=== PATIENT | male | born 1935 | race Caucasian/White ===

== ENCOUNTER 2023-11-24 11:39 | Emergency (ER) | payer MEDICARE, BC ==
[2023-11-24] MEDS ORDERED: Morphine 4 MG/ML VIAL ONE (12:29)
[2023-11-24] MEDS ORDERED: Ondansetron PF 4 MG/2 ML Vial ONE (12:29)
[2023-11-24 13:02] LABS: #Basophils 0.1 thou/uL (0.0-0.2); #Eosinphils 0.2 thou/uL (0.0-0.7); #Lymphocytes 1.8 thou/uL (1.20-3.40); #Monocytes 0.9 thou/uL (0.11-0.59); #Neutrophils 8.7 thou/uL (1.40-6.50); %Basophils 0.6 % (0.0-1.0); %Eosinophils 1.5 % (0.0-10.0); %Lymphocytes 15.8 % (21.0-51.0); %Monocytes 7.6 % (0.0-10.0); %Neutrophils 74.5 % (42.0-75.0); Hematocrit 38.2 % (42.0-52.0); Hemoglobin 12.7 g/dL (14.0-18.0); Mean Corpuscular HGB CONC 33.1 g/dL (32.0-36.0); Mean Corpuscular Hemoglobin 29.5 pg (27.0-31.0); Mean Platelet Volume 9.4 fL (7.4-10.4); Platelet Count 174 10x3/uL (130-400); RBC Distribution Width 12.1 % (11.5-14.5); Red Blood Cell (RBC) Count 4.29 mill/uL (4.70-6.10); White Blood Cell (WBC) Count 11.7 10x3/uL (4.8-10.8)
[2023-11-24 13:20] LABS: ALT (SGPT) 16 U/L (8-55); AST (SGOT) 18 U/L (5-34); Albumin 3.6 g/dL (3.4-4.8); Alkaline Phosphatase 106 U/L (40-110); Anion Gap 13 mmol/L (10-20); BUN (Urea Nitrogen) 25 mg/dL (8.4-25.7); Bilirubin, Total 0.3 mg/dL (0.2-1.2); Calc. Creatinine Clearance 0 mL/min (70-130); Calcium 8.5 mg/dL (7.8-10.44); Carbon Dioxide 28 mmol/L (23-31); Chloride 104 mmol/L (98-107); Estimated GFR 53; Glucose 99 mg/dL (83-110); Magnesium 1.9 mg/dL (1.6-2.6); Potassium 3.8 mmol/L (3.5-5.1); Protein, Total 6.6 g/dL (5.8-8.1); Sodium 141 mmol/L (136-145); Troponin I Less than 0.010 ng/mL (< 0.028)
== END 2023-11-24 18:15 | disposition short-term general hospital (02) ==
LOC: BURERS 11:39
DX: S72.001A Fracture of unspecified part of neck of right femur, initial encounter for closed fracture (principal); S80.211A Abrasion, right knee, initial encounter; I10 Essential (primary) hypertension; E11.9 Type 2 diabetes mellitus without complications; E78.5 Hyperlipidemia, unspecified; Z79.899 Other long term (current) drug therapy; W18.30XA Fall on same level, unspecified, initial encounter
CPT/HCPCS: 71045; 72170; 72192; 80053; 83735; 84484; 85025; 93005; 96374; 96375; J2270; J2405

== ENCOUNTER 2023-11-28 15:40 | Inpatient (IN) | payer MEDICARE, BC ==
[2023-11-28] MEDS ORDERED: Senokot S 8.6-50 MG TAB PO PRN (18:10)
[2023-11-28] MEDS ORDERED: Ondansetron ODT 4 MG TAB PO PRN (18:10)
[2023-11-28] MEDS ORDERED: Calcium Carbonate 500 MG ChewTAB PO PRN (18:10)
[2023-11-28 19:25] VITALS: BMI 26.5
[2023-11-28] MEDS: ALPRAZolam 0.5 MG TAB PO SCH (20:28)
[2023-11-28] MEDS: Tamsulosin HCl 0.4 MG CAP PO SCH (20:28)
[2023-11-28] MEDS: Enoxaparin 40 MG (0.4 mL) SYRINGE SC SCH (20:28)
[2023-11-28] MEDS: Rosuvastatin 10 MG TAB PO SCH (20:28)
[2023-11-28] MEDS: Famotidine 20 MG TAB PO SCH (20:28)
[2023-11-28] MEDS ORDERED: Acetaminophen 500 MG TAB PO SCH (23:59)
[2023-11-29] MEDS: Atenolol 50 MG TAB PO SCH ×3 (00:10→20:27)
[2023-11-29] MEDS: Melatonin 3 MG TAB PO PRN (00:10)
[2023-11-29] MEDS: Acetaminophen 325 MG TAB PO PRN ×2 (05:15→15:01)
[2023-11-29] MEDS: Levothyroxine Sodium 100 MCG TAB PO SCH (05:15)
[2023-11-29 05:32] LABS: #Basophils 0.1 thou/uL (0.0-0.2); #Eosinphils 0.2 thou/uL (0.0-0.7); #Monocytes 1.2 thou/uL (0.11-0.59); #Neutrophils 7.4 thou/uL (1.40-6.50); %Basophils 0.7 % (0.0-1.0); %Eosinophils 2.1 % (0.0-10.0); %Lymphocytes 18.6 % (21.0-51.0); %Monocytes 10.5 % (0.0-10.0); %Neutrophils 68.2 % (42.0-75.0); Hematocrit 31.1 % (42.0-52.0); Hemoglobin 10.1 g/dL (14.0-18.0); Mean Corpuscular HGB CONC 32.5 g/dL (32.0-36.0); Mean Corpuscular Hemoglobin 28.8 pg (27.0-31.0); Mean Corpuscular Volume 88.7 fl (78.0-98.0); Mean Platelet Volume 10.4 fL (7.4-10.4); Platelet Count 154 10x3/uL (130-400); RBC Distribution Width 11.9 % (11.5-14.5); Red Blood Cell (RBC) Count 3.51 mill/uL (4.70-6.10); White Blood Cell (WBC) Count 10.9 10x3/uL (4.8-10.8)
[2023-11-29 05:59] LABS: Anion Gap 14 mmol/L (10-20); BUN (Urea Nitrogen) 25 mg/dL (8.4-25.7); Calc. Creatinine Clearance 61 mL/min (70-130); Calcium 8.7 mg/dL (7.8-10.44); Carbon Dioxide 23 mmol/L (23-31); Chloride 104 mmol/L (98-107); Estimated GFR 63; Glucose 128 mg/dL (83-110); Potassium 3.3 mmol/L (3.5-5.1); Sodium 138 mmol/L (136-145)
[2023-11-29] MEDS: Citalopram 20 MG TAB PO SCH ×2 (07:50→17:16)
[2023-11-29] MEDS: Amlodipine 5 MG TAB PO SCH (08:42)
[2023-11-29] MEDS: glipiZIDE 5 MG TAB PO SCH (08:42)
[2023-11-29] MEDS: Potassium Chloride 20 MEQ TAB PO SCH ×2 (08:42→17:16)
[2023-11-29] MEDS: Famotidine 20 MG TAB PO SCH ×2 (08:42→20:27)
[2023-11-29] MEDS: Hydrochlorothiazide 25 MG TAB PO SCH (08:42)
[2023-11-29 11:10] LABS: Hemoglobin A1c 6.9 % (4.0-6.0)
[2023-11-29] MEDS: Enoxaparin 40 MG (0.4 mL) SYRINGE SC SCH (20:27)
[2023-11-29] MEDS: Tamsulosin HCl 0.4 MG CAP PO SCH (20:27)
[2023-11-29] MEDS: Rosuvastatin 10 MG TAB PO SCH (20:27)
[2023-11-29] MEDS: ALPRAZolam 0.5 MG TAB PO SCH (20:28)
[2023-11-30] MEDS: Levothyroxine Sodium 100 MCG TAB PO SCH (05:54)
[2023-11-30] MEDS: Citalopram 20 MG TAB PO SCH ×2 (08:42→17:06)
[2023-11-30] MEDS: Famotidine 20 MG TAB PO SCH ×2 (08:43→20:50)
[2023-11-30] MEDS: Hydrochlorothiazide 25 MG TAB PO SCH (08:43)
[2023-11-30] MEDS: Amlodipine 5 MG TAB PO SCH (08:44)
[2023-11-30] MEDS: Atenolol 50 MG TAB PO SCH ×2 (08:45→20:49)
[2023-11-30] MEDS: glipiZIDE 5 MG TAB PO SCH (08:45)
[2023-11-30] MEDS: Potassium Chloride 20 MEQ TAB PO SCH ×2 (08:45→17:06)
[2023-11-30] MEDS: Enoxaparin 40 MG (0.4 mL) SYRINGE SC SCH (20:49)
[2023-11-30] MEDS: Rosuvastatin 10 MG TAB PO SCH (20:50)
[2023-11-30] MEDS: Tamsulosin HCl 0.4 MG CAP PO SCH (20:50)
[2023-11-30] MEDS: ALPRAZolam 0.5 MG TAB PO SCH (20:50)
[2023-11-30] MEDS: Acetaminophen 325 MG TAB PO PRN (20:50)
[2023-12-01] MEDS: Levothyroxine Sodium 100 MCG TAB PO SCH (05:10)
[2023-12-01] MEDS: Acetaminophen 325 MG TAB PO PRN ×2 (08:20→20:21)
[2023-12-01] MEDS: Famotidine 20 MG TAB PO SCH ×2 (08:21→20:20)
[2023-12-01] MEDS: Citalopram 20 MG TAB PO SCH ×2 (08:21→16:09)
[2023-12-01] MEDS: Hydrochlorothiazide 25 MG TAB PO SCH (08:21)
[2023-12-01] MEDS: glipiZIDE 5 MG TAB PO SCH (08:21)
[2023-12-01] MEDS: Amlodipine 5 MG TAB PO SCH (08:21)
[2023-12-01] MEDS: Atenolol 50 MG TAB PO SCH ×2 (08:22→20:20)
[2023-12-01] MEDS: Rosuvastatin 10 MG TAB PO SCH (20:20)
[2023-12-01] MEDS: Tamsulosin HCl 0.4 MG CAP PO SCH (20:20)
[2023-12-01] MEDS: ALPRAZolam 0.5 MG TAB PO SCH (20:21)
[2023-12-01] MEDS: Enoxaparin 40 MG (0.4 mL) SYRINGE SC SCH (20:22)
[2023-12-02] MEDS: Levothyroxine Sodium 100 MCG TAB PO SCH (05:08)
[2023-12-02 05:23] LABS: Anion Gap 15 mmol/L (10-20); BUN (Urea Nitrogen) 32 mg/dL (8.4-25.7); Calc. Creatinine Clearance 62 mL/min (70-130); Calcium 8.6 mg/dL (7.8-10.44); Carbon Dioxide 25 mmol/L (23-31); Chloride 105 mmol/L (98-107); Estimated GFR 65; Glucose 125 mg/dL (83-110); Potassium 3.6 mmol/L (3.5-5.1); Sodium 141 mmol/L (136-145)
[2023-12-02] MEDS: Amlodipine 5 MG TAB PO SCH (08:59)
[2023-12-02] MEDS: Atenolol 50 MG TAB PO SCH ×2 (09:01→20:53)
[2023-12-02] MEDS: Famotidine 20 MG TAB PO SCH ×2 (09:02→20:53)
[2023-12-02] MEDS: glipiZIDE 5 MG TAB PO SCH (09:02)
[2023-12-02] MEDS: Citalopram 20 MG TAB PO SCH ×2 (09:02→16:32)
[2023-12-02] MEDS: Hydrochlorothiazide 25 MG TAB PO SCH (09:03)
[2023-12-02] MEDS: Acetaminophen 325 MG TAB PO PRN ×2 (09:20→20:53)
[2023-12-02] MEDS: REPAGLINIDE 2 MG PO SCH (16:33)
[2023-12-02] MEDS: Rosuvastatin 10 MG TAB PO SCH (20:52)
[2023-12-02] MEDS: Tamsulosin HCl 0.4 MG CAP PO SCH (20:53)
[2023-12-02] MEDS: ALPRAZolam 0.5 MG TAB PO SCH (20:53)
[2023-12-02] MEDS: Enoxaparin 40 MG (0.4 mL) SYRINGE SC SCH (20:54)
[2023-12-03] MEDS: Levothyroxine Sodium 100 MCG TAB PO SCH (05:33)
[2023-12-03] MEDS: Citalopram 20 MG TAB PO SCH ×2 (08:16→16:41)
[2023-12-03] MEDS: REPAGLINIDE 2 MG PO SCH ×2 (08:17→16:42)
[2023-12-03] MEDS: Acetaminophen 325 MG TAB PO PRN ×3 (09:14→20:31)
[2023-12-03] MEDS: Atenolol 50 MG TAB PO SCH ×2 (09:16→20:31)
[2023-12-03] MEDS: Hydrochlorothiazide 25 MG TAB PO SCH (09:16)
[2023-12-03] MEDS: Amlodipine 5 MG TAB PO SCH (09:17)
[2023-12-03] MEDS: Famotidine 20 MG TAB PO SCH ×2 (09:18→20:31)
[2023-12-03] MEDS: glipiZIDE 5 MG TAB PO SCH (09:18)
[2023-12-03] MEDS: Pioglitazone HCl 15 MG TAB PO SCH (09:21)
[2023-12-03] MEDS: ALPRAZolam 0.5 MG TAB PO SCH (20:31)
[2023-12-03] MEDS: Rosuvastatin 10 MG TAB PO SCH (20:31)
[2023-12-03] MEDS: Enoxaparin 40 MG (0.4 mL) SYRINGE SC SCH (20:31)
[2023-12-03] MEDS: Tamsulosin HCl 0.4 MG CAP PO SCH (20:31)
[2023-12-04] MEDS: Levothyroxine Sodium 100 MCG TAB PO SCH (06:16)
[2023-12-04] MEDS: Hydrochlorothiazide 25 MG TAB PO SCH (09:47)
[2023-12-04] MEDS: Famotidine 20 MG TAB PO SCH ×2 (09:47→21:33)
[2023-12-04] MEDS: Pioglitazone HCl 15 MG TAB PO SCH (09:47)
[2023-12-04] MEDS: glipiZIDE 5 MG TAB PO SCH (09:47)
[2023-12-04] MEDS: Atenolol 50 MG TAB PO SCH ×2 (09:48→21:33)
[2023-12-04] MEDS: Amlodipine 5 MG TAB PO SCH (09:49)
[2023-12-04] MEDS: REPAGLINIDE 2 MG PO SCH ×2 (09:50→17:02)
[2023-12-04] MEDS: Citalopram 20 MG TAB PO SCH ×2 (09:54→17:01)
[2023-12-04] MEDS: Acetaminophen 325 MG TAB PO PRN ×2 (10:48→21:33)
[2023-12-04] MEDS: Rosuvastatin 10 MG TAB PO SCH (21:32)
[2023-12-04] MEDS: Tamsulosin HCl 0.4 MG CAP PO SCH (21:33)
[2023-12-04] MEDS: ALPRAZolam 0.5 MG TAB PO SCH (21:33)
[2023-12-04] MEDS: Enoxaparin 40 MG (0.4 mL) SYRINGE SC SCH (21:34)
[2023-12-05] MEDS: Acetaminophen 325 MG TAB PO PRN ×2 (01:42→09:11)
[2023-12-05] MEDS: Levothyroxine Sodium 100 MCG TAB PO SCH (05:44)
[2023-12-05] MEDS: Hydrochlorothiazide 25 MG TAB PO SCH (08:29)
[2023-12-05] MEDS: Citalopram 20 MG TAB PO SCH ×2 (08:29→17:39)
[2023-12-05] MEDS: REPAGLINIDE 2 MG PO SCH ×2 (08:29→17:39)
[2023-12-05] MEDS: Amlodipine 5 MG TAB PO SCH (08:30)
[2023-12-05] MEDS: glipiZIDE 5 MG TAB PO SCH (08:30)
[2023-12-05] MEDS: Atenolol 50 MG TAB PO SCH ×2 (08:30→21:47)
[2023-12-05] MEDS: Pioglitazone HCl 15 MG TAB PO SCH (08:30)
[2023-12-05] MEDS: Famotidine 20 MG TAB PO SCH ×2 (08:30→21:48)
[2023-12-05] MEDS: ALPRAZolam 0.5 MG TAB PO SCH (21:47)
[2023-12-05] MEDS: Tamsulosin HCl 0.4 MG CAP PO SCH (21:47)
[2023-12-05] MEDS: Rosuvastatin 10 MG TAB PO SCH (21:47)
[2023-12-05] MEDS: Acetaminophen 500 MG TAB PO PRN (21:48)
[2023-12-05] MEDS: Enoxaparin 40 MG (0.4 mL) SYRINGE SC SCH (21:48)
[2023-12-06] MEDS: Levothyroxine Sodium 100 MCG TAB PO SCH (05:31)
[2023-12-06] MEDS: Pioglitazone HCl 15 MG TAB PO SCH ×3 (09:00→21:00)
[2023-12-06] MEDS: Famotidine 20 MG TAB PO SCH ×2 (09:31→20:52)
[2023-12-06] MEDS: Hydrochlorothiazide 25 MG TAB PO SCH (09:31)
[2023-12-06] MEDS: Amlodipine 5 MG TAB PO SCH (09:32)
[2023-12-06] MEDS: Atenolol 50 MG TAB PO SCH ×2 (09:33→20:52)
[2023-12-06] MEDS: glipiZIDE 5 MG TAB PO SCH (09:33)
[2023-12-06] MEDS: Citalopram 20 MG TAB PO SCH ×2 (09:34→16:49)
[2023-12-06] MEDS: REPAGLINIDE 2 MG PO SCH (09:35)
[2023-12-06] MEDS: PIOGLITAZONE 45 MG TABLET PO SCH (09:35)
[2023-12-06] MEDS: Acetaminophen 500 MG TAB PO PRN ×2 (09:44→20:53)
[2023-12-06] MEDS: Nateglinide 120 MG TAB PO SCH (16:49)
[2023-12-06] MEDS: Tamsulosin HCl 0.4 MG CAP PO SCH (20:52)
[2023-12-06] MEDS: ALPRAZolam 0.5 MG TAB PO SCH (20:52)
[2023-12-06] MEDS: Rosuvastatin 10 MG TAB PO SCH (20:52)
[2023-12-06] MEDS: Enoxaparin 40 MG (0.4 mL) SYRINGE SC SCH (20:54)
[2023-12-07 05:01] LABS: Hematocrit 32.3 % (42.0-52.0); Hemoglobin 10.7 g/dL (14.0-18.0); Platelet Count 291 10x3/uL (130-400)
[2023-12-07] MEDS: Levothyroxine Sodium 100 MCG TAB PO SCH (06:06)
[2023-12-07] MEDS: Pioglitazone HCl 15 MG TAB PO SCH (08:13)
[2023-12-07] MEDS: Acetaminophen 500 MG TAB PO PRN ×2 (08:14→21:03)
[2023-12-07] MEDS: glipiZIDE 5 MG TAB PO SCH (08:14)
[2023-12-07] MEDS: Nateglinide 120 MG TAB PO SCH ×3 (08:18→16:28)
[2023-12-07] MEDS: Famotidine 20 MG TAB PO SCH ×2 (08:31→21:03)
[2023-12-07] MEDS: Citalopram 20 MG TAB PO SCH ×2 (08:31→16:28)
[2023-12-07] MEDS: Hydrochlorothiazide 25 MG TAB PO SCH (08:32)
[2023-12-07] MEDS: Amlodipine 5 MG TAB PO SCH (08:36)
[2023-12-07] MEDS: Atenolol 50 MG TAB PO SCH ×2 (08:37→21:03)
[2023-12-07] MEDS: ALPRAZolam 0.5 MG TAB PO SCH (21:03)
[2023-12-07] MEDS: Tamsulosin HCl 0.4 MG CAP PO SCH (21:03)
[2023-12-07] MEDS: Rosuvastatin 10 MG TAB PO SCH (21:03)
[2023-12-07] MEDS: Enoxaparin 40 MG (0.4 mL) SYRINGE SC SCH (21:04)
[2023-12-08] MEDS: Levothyroxine Sodium 100 MCG TAB PO SCH (05:55)
[2023-12-08] MEDS: Hydrochlorothiazide 25 MG TAB PO SCH (09:36)
[2023-12-08] MEDS: glipiZIDE 5 MG TAB PO SCH (09:36)
[2023-12-08] MEDS: Famotidine 20 MG TAB PO SCH ×2 (09:36→20:40)
[2023-12-08] MEDS: Atenolol 50 MG TAB PO SCH ×2 (09:36→20:40)
[2023-12-08] MEDS: Pioglitazone HCl 15 MG TAB PO SCH (09:36)
[2023-12-08] MEDS: Citalopram 20 MG TAB PO SCH ×2 (09:37→16:16)
[2023-12-08] MEDS: Nateglinide 120 MG TAB PO SCH ×3 (09:37→16:16)
[2023-12-08] MEDS: Amlodipine 5 MG TAB PO SCH (09:37)
[2023-12-08] MEDS: Acetaminophen 500 MG TAB PO PRN (16:17)
[2023-12-08] MEDS: Tamsulosin HCl 0.4 MG CAP PO SCH (20:40)
[2023-12-08] MEDS: Rosuvastatin 10 MG TAB PO SCH (20:40)
[2023-12-08] MEDS: ALPRAZolam 0.5 MG TAB PO SCH (20:40)
[2023-12-08] MEDS: Enoxaparin 40 MG (0.4 mL) SYRINGE SC SCH (20:40)
[2023-12-09] MEDS: Levothyroxine Sodium 100 MCG TAB PO SCH (04:03)
[2023-12-09] MEDS: Pioglitazone HCl 15 MG TAB PO SCH ×2 (08:28→22:46)
[2023-12-09] MEDS: Nateglinide 120 MG TAB PO SCH ×3 (08:28→16:57)
[2023-12-09] MEDS: Atenolol 50 MG TAB PO SCH ×2 (08:28→20:15)
[2023-12-09] MEDS: Hydrochlorothiazide 25 MG TAB PO SCH (08:29)
[2023-12-09] MEDS: Amlodipine 5 MG TAB PO SCH (08:29)
[2023-12-09] MEDS: Famotidine 20 MG TAB PO SCH ×2 (08:29→20:15)
[2023-12-09] MEDS: glipiZIDE 5 MG TAB PO SCH (08:29)
[2023-12-09] MEDS: Citalopram 20 MG TAB PO SCH ×2 (08:29→16:56)
[2023-12-09] MEDS: Acetaminophen 500 MG TAB PO PRN (08:30)
[2023-12-09] MEDS: Tamsulosin HCl 0.4 MG CAP PO SCH (20:14)
[2023-12-09] MEDS: ALPRAZolam 0.5 MG TAB PO SCH (20:15)
[2023-12-09] MEDS: Rosuvastatin 10 MG TAB PO SCH (20:16)
[2023-12-09] MEDS: Enoxaparin 40 MG (0.4 mL) SYRINGE SC SCH (20:17)
[2023-12-10] MEDS: Levothyroxine Sodium 100 MCG TAB PO SCH (05:45)
[2023-12-10] MEDS: Citalopram 20 MG TAB PO SCH ×2 (07:46→16:47)
[2023-12-10] MEDS: Nateglinide 120 MG TAB PO SCH ×3 (07:46→16:47)
[2023-12-10] MEDS: Atenolol 50 MG TAB PO SCH ×2 (08:56→21:08)
[2023-12-10] MEDS: glipiZIDE 5 MG TAB PO SCH (08:57)
[2023-12-10] MEDS: Famotidine 20 MG TAB PO SCH ×2 (08:57→21:08)
[2023-12-10] MEDS: Amlodipine 5 MG TAB PO SCH (08:57)
[2023-12-10] MEDS: Hydrochlorothiazide 25 MG TAB PO SCH (08:57)
[2023-12-10] MEDS: Pioglitazone HCl 15 MG TAB PO SCH (08:57)
[2023-12-10] MEDS: Acetaminophen 500 MG TAB PO PRN (08:58)
[2023-12-10] MEDS: ALPRAZolam 0.5 MG TAB PO SCH (21:08)
[2023-12-10] MEDS: Tamsulosin HCl 0.4 MG CAP PO SCH (21:08)
[2023-12-10] MEDS: Enoxaparin 40 MG (0.4 mL) SYRINGE SC SCH (21:08)
[2023-12-10] MEDS: Rosuvastatin 10 MG TAB PO SCH (21:09)
[2023-12-11] MEDS: Levothyroxine Sodium 100 MCG TAB PO SCH (05:26)
[2023-12-11] MEDS: Citalopram 20 MG TAB PO SCH ×2 (08:07→16:34)
[2023-12-11] MEDS: Nateglinide 120 MG TAB PO SCH ×3 (08:07→16:34)
[2023-12-11] MEDS: Acetaminophen 500 MG TAB PO PRN (09:01)
[2023-12-11] MEDS: Pioglitazone HCl 15 MG TAB PO SCH (09:01)
[2023-12-11] MEDS: Atenolol 50 MG TAB PO SCH ×2 (09:03→20:22)
[2023-12-11] MEDS: Hydrochlorothiazide 25 MG TAB PO SCH (09:03)
[2023-12-11] MEDS: Famotidine 20 MG TAB PO SCH ×2 (09:03→20:22)
[2023-12-11] MEDS: Amlodipine 5 MG TAB PO SCH ×2 (09:04→09:11)
[2023-12-11] MEDS: glipiZIDE 5 MG TAB PO SCH (09:04)
[2023-12-11] MEDS: ALPRAZolam 0.5 MG TAB PO SCH (20:22)
[2023-12-11] MEDS: Rosuvastatin 10 MG TAB PO SCH (20:22)
[2023-12-11] MEDS: Tamsulosin HCl 0.4 MG CAP PO SCH (20:23)
[2023-12-11] MEDS: Enoxaparin 40 MG (0.4 mL) SYRINGE SC SCH (20:23)
[2023-12-12] MEDS: Levothyroxine Sodium 100 MCG TAB PO SCH (07:31)
[2023-12-12] MEDS: Citalopram 20 MG TAB PO SCH ×2 (07:33→15:58)
[2023-12-12] MEDS: Nateglinide 120 MG TAB PO SCH ×3 (07:33→15:58)
[2023-12-12] MEDS: Acetaminophen 500 MG TAB PO PRN ×2 (08:58→15:59)
[2023-12-12] MEDS: Amlodipine 5 MG TAB PO SCH (09:30)
[2023-12-12] MEDS: Pioglitazone HCl 15 MG TAB PO SCH (09:31)
[2023-12-12] MEDS: Hydrochlorothiazide 25 MG TAB PO SCH (09:31)
[2023-12-12] MEDS: glipiZIDE 5 MG TAB PO SCH (09:31)
[2023-12-12] MEDS: Famotidine 20 MG TAB PO SCH ×2 (09:31→20:52)
[2023-12-12] MEDS: Atenolol 50 MG TAB PO SCH ×2 (09:31→20:52)
[2023-12-12] MEDS: ALPRAZolam 0.5 MG TAB PO SCH (20:52)
[2023-12-12] MEDS: Melatonin 3 MG TAB PO PRN (20:52)
[2023-12-12] MEDS: Tamsulosin HCl 0.4 MG CAP PO SCH (20:52)
[2023-12-12] MEDS: Rosuvastatin 10 MG TAB PO SCH (20:52)
[2023-12-12] MEDS: Enoxaparin 40 MG (0.4 mL) SYRINGE SC SCH (20:53)
[2023-12-13] MEDS: Levothyroxine Sodium 100 MCG TAB PO SCH ×2 (05:42→09:28)
[2023-12-13] MEDS: Citalopram 20 MG TAB PO SCH ×2 (09:21→16:21)
[2023-12-13] MEDS: Nateglinide 120 MG TAB PO SCH ×3 (09:21→16:21)
[2023-12-13] MEDS: Pioglitazone HCl 15 MG TAB PO SCH (09:22)
[2023-12-13] MEDS: Famotidine 20 MG TAB PO SCH ×2 (09:22→21:19)
[2023-12-13] MEDS: Amlodipine 5 MG TAB PO SCH ×2 (09:24→09:30)
[2023-12-13] MEDS: Hydrochlorothiazide 25 MG TAB PO SCH (09:25)
[2023-12-13] MEDS: Atenolol 50 MG TAB PO SCH ×2 (09:25→21:18)
[2023-12-13] MEDS: Acetaminophen 500 MG TAB PO PRN (09:26)
[2023-12-13] MEDS: glipiZIDE 5 MG TAB PO SCH (09:26)
[2023-12-13] MEDS: Tamsulosin HCl 0.4 MG CAP PO SCH (21:18)
[2023-12-13] MEDS: Rosuvastatin 10 MG TAB PO SCH (21:18)
[2023-12-13] MEDS: Enoxaparin 40 MG (0.4 mL) SYRINGE SC SCH (21:18)
[2023-12-13] MEDS: ALPRAZolam 0.5 MG TAB PO SCH (21:19)
[2023-12-13] MEDS: Melatonin 3 MG TAB PO PRN (21:20)
[2023-12-14] MEDS: Levothyroxine Sodium 100 MCG TAB PO SCH (06:10)
[2023-12-14] MEDS: Citalopram 20 MG TAB PO SCH ×2 (07:42→16:25)
[2023-12-14] MEDS: Nateglinide 120 MG TAB PO SCH ×3 (07:43→16:25)
[2023-12-14] MEDS: Acetaminophen 500 MG TAB PO PRN ×2 (08:57→20:24)
[2023-12-14] MEDS: Pioglitazone HCl 15 MG TAB PO SCH (08:57)
[2023-12-14] MEDS: Atenolol 50 MG TAB PO SCH ×2 (08:58→20:21)
[2023-12-14] MEDS: Amlodipine 5 MG TAB PO SCH (08:59)
[2023-12-14] MEDS: Famotidine 20 MG TAB PO SCH ×2 (09:00→20:22)
[2023-12-14] MEDS: Hydrochlorothiazide 25 MG TAB PO SCH (09:00)
[2023-12-14] MEDS: glipiZIDE 5 MG TAB PO SCH (09:00)
[2023-12-14] MEDS: ALPRAZolam 0.5 MG TAB PO SCH (20:21)
[2023-12-14] MEDS: Tamsulosin HCl 0.4 MG CAP PO SCH (20:21)
[2023-12-14] MEDS: Enoxaparin 40 MG (0.4 mL) SYRINGE SC SCH (20:22)
[2023-12-14] MEDS: Rosuvastatin 10 MG TAB PO SCH (20:22)
[2023-12-14] MEDS: Melatonin 3 MG TAB PO PRN (20:24)
[2023-12-15] MEDS: Levothyroxine Sodium 100 MCG TAB PO SCH (05:52)
[2023-12-15 05:56] VITALS: TEMP 98
[2023-12-15] MEDS: Acetaminophen 500 MG TAB PO PRN (08:23)
[2023-12-15] MEDS: Nateglinide 120 MG TAB PO SCH (08:24)
[2023-12-15] MEDS: Pioglitazone HCl 15 MG TAB PO SCH (08:24)
[2023-12-15] MEDS: Amlodipine 5 MG TAB PO SCH (08:24)
[2023-12-15] MEDS: Atenolol 50 MG TAB PO SCH (08:25)
[2023-12-15] MEDS: Hydrochlorothiazide 25 MG TAB PO SCH (08:25)
[2023-12-15] MEDS: Citalopram 20 MG TAB PO SCH (08:25)
[2023-12-15 08:26] VITALS: BP 123/63
[2023-12-15] MEDS: Famotidine 20 MG TAB PO SCH (08:26)
[2023-12-15] MEDS: glipiZIDE 5 MG TAB PO SCH (08:26)
== END 2023-12-15 10:50 | disposition home or self-care (01) | DRG 561 ==
LOC: BURMED 17:35
PROVIDERS: ADMIT Family Medicine; ATTEND Nurse Practitioner
DX: S72.011D Unspecified intracapsular fracture of right femur, subsequent encounter for closed fracture with routine healing (principal); W18.30XD Fall on same level, unspecified, subsequent encounter; E11.9 Type 2 diabetes mellitus without complications; I10 Essential (primary) hypertension; E78.5 Hyperlipidemia, unspecified; E87.6 Hypokalemia; Z79.899 Other long term (current) drug therapy; Z79.84 Long term (current) use of oral hypoglycemic drugs
CPT/HCPCS: 36415; 80048; 82565; 83036; 85014; 85018; 85025; 85049; J1650

== ENCOUNTER 2024-06-05 12:42 | Emergency (ER) | payer MEDICARE, BC ==
[~2024-06-05 12:42] MED LIST: Iopamidol 370 76% 100 ML VIAL ONE
[2024-06-05 13:29] LABS: #Basophils 0.1 thou/uL (0.0-0.2); #Eosinphils 0.2 thou/uL (0.0-0.7); #Monocytes 1.4 thou/uL (0.11-0.59); #Neutrophils 11.1 thou/uL (1.40-6.50); %Basophils 0.9 % (0.0-1.0); %Eosinophils 1.5 % (0.0-10.0); %Lymphocytes 13.4 % (21.0-51.0); %Monocytes 9.1 % (0.0-10.0); %Neutrophils 75.1 % (42.0-75.0); Hematocrit 40.9 % (42.0-52.0); Hemoglobin 13.4 g/dL (14.0-18.0); Mean Corpuscular HGB CONC 32.8 g/dL (32.0-36.0); Mean Corpuscular Hemoglobin 26.9 pg (27.0-31.0); Mean Corpuscular Volume 82.2 fl (78.0-98.0); Mean Platelet Volume 8.7 fL (7.4-10.4); Platelet Count 206 10x3/uL (130-400); RBC Distribution Width 13.4 % (11.5-14.5); Red Blood Cell (RBC) Count 4.97 mill/uL (4.70-6.10); White Blood Cell (WBC) Count 14.8 10x3/uL (4.8-10.8)
[2024-06-05 13:44] LABS: ALT (SGPT) 26 U/L (8-55); AST (SGOT) 27 U/L (5-34); Albumin 2.5 g/dL (3.4-4.8); Alkaline Phosphatase 96 U/L (40-110); Anion Gap 16 mmol/L (10-20); BUN (Urea Nitrogen) 16 mg/dL (8.4-25.7); Bilirubin, Total 0.4 mg/dL (0.2-1.2); Calc. Creatinine Clearance 0 mL/min (70-130); Calcium 8.2 mg/dL (7.8-10.44); Carbon Dioxide 22 mmol/L (23-31); Chloride 104 mmol/L (98-107); Estimated GFR 48; Globulin 3.4 g/dL (2.4-3.5); Glucose 136 mg/dL (83-110); Potassium 2.8 mmol/L (3.5-5.1); Protein, Total 5.9 g/dL (5.8-8.1); Sodium 139 mmol/L (136-145)
[2024-06-05] MEDS ORDERED: NS 0.9% w/ 20 MEQ KCL 1,000 ML ONE (13:55)
[2024-06-05] MEDS ORDERED: Potassium Chloride 20 MEQ TAB ONE (14:42)
[2024-06-05] MEDS ORDERED: metroNIDAZOLE 500 MG (100 mL) BAG ONE (15:10)
[2024-06-05] MEDS ORDERED: LevoFLOXacin 750 mg/D5W 150 ml Premix Bag ONE ×2 (15:10→15:11)
[2024-06-06 01:58] LABS: Campy jejuni + coli by PCR Negative (Negative); STEC Shiga Toxin 1+2 Negative (Negative); Salmonella spp. by PCR Negative (Negative); Shigella spp + EIEC by PCR Negative (Negative)
== END 2024-06-05 19:05 | disposition short-term general hospital (02) ==
LOC: BURERS 12:42
DX: K51.20 Ulcerative (chronic) proctitis without complications (principal); E87.6 Hypokalemia; R53.1 Weakness; I10 Essential (primary) hypertension; E78.5 Hyperlipidemia, unspecified; Z79.899 Other long term (current) drug therapy
CPT/HCPCS: 36415; 74177; 80053; 83605; 85025; 87040; 87505; 93005; 96365; 96366; 96367; J1956; J3480; Q9967